=== PATIENT | male | born 1960 ===

== ENCOUNTER 2020-12-28 22:55 | Inpatient (IN) ==
[2020-12-28] MEDS ORDERED: Morphine 10 MG/ML VIAL (1 ml) IV ONE (23:22)
[2020-12-28] MEDS ORDERED: NS 0.9% 1000 ml BAG 1,000 ML IV ONE (23:22)
[2020-12-29 00:08] LABS: Body Fluid Source Synovial Fluid
[2020-12-29 00:17] LABS: Hematocrit 36 % (42-52); Hemoglobin 12.4 g/dL (14.0-18.0); Mean Corpuscular HGB Conc 35 g/dL (31-36); Mean Corpuscular Hemoglobin 29 pg (27-31); Mean Corpuscular Volume 84 fL (80-94); Mean Platelet Volume 7.4 fL (7.4-10.4); Platelet Count 436 10^3/uL (150-450); Red Blood Count 4.25 10^6 /uL (4.18-5.48); Red Cell Distribution Width 17 % (10-15); White Blood Count 15.7 10^3/uL (3.5-10.8)
[2020-12-29 00:19] LABS: ABS Basophils 0.1 10^3/ul (0-0.2); ABS Lymphocytes 1.7 10^3/ul (1.0-4.8); ABS Monocytes 2.3 10^3/ul (0-0.8); ABS Neutrophils 11.6 10^3/ul (1.5-7.7); Eosinophil % 0.3 %; Lymphocyte % 10.7 %; Nucleated Red Blood Cells % 0.1
[2020-12-29 00:28] LABS: Albumin/Globulin Ratio 0.9 (1-3); C Reactive Protein 240.19 mg/L (<8.01); Calcium 9.8 mg/dL (8.6-10.3); EGFR African American 58.9 (>60); EGFR Non-African American 48.6 (>60); Globulin 4.4 g/dL (2-4); Total Bilirubin 1.3 mg/dL (0.2-1.0); Total Protein 8.4 g/dL (6.4-8.9); Uric Acid 10.8 mg/dL (4.4-7.6)
[2020-12-29] MEDS ORDERED: methylPREDNISolone 125 mg 2 ML VIAL IV ONE (00:30)
[2020-12-29 00:32] LABS: Potassium 2.5 mmol/L (3.5-5.0)
[2020-12-29] MEDS ORDERED: Potassium EFFERVES 25 meq TAB PO ONE (00:39)
[2020-12-29 01:39] LABS: Giant Platelets Present
[2020-12-29] MEDS: KCL 20 MEQ/100 ML IVPREMIX 20 MEQ/100 ML BAG IV SCH ×4 (01:39→23:32)
[2020-12-29 01:44] LABS: Erythrocyte Sed Rate > 120 mm/Hr (0-19)
[2020-12-29 03:52] LABS: Body Fluid Appearance Cloudy; Body Fluid Color Yellow; Body Fluid Mono 17 %; Body Fluid Total Cells Counted 200
[2020-12-29] MEDS ORDERED: Nicotine Lozenge mini 4 MG LOZNG.MINI MT ONE (04:16)
[2020-12-29 04:21] LABS: Body Fluid WBC 2065 /mcL
[2020-12-29] MEDS ORDERED: Morphine 4 MG/ML VIAL (1 ml) IV ONE (04:21)
[2020-12-29] MEDS ORDERED: NS 0.9% 500 ml BAG 500 ML IV ONE ×2 (05:11→14:42)
[2020-12-29 05:15] LABS: Urine Appearance Clear; Urine Bilirubin Negative (Negative); Urine Blood Negative (Negative); Urine Color Yellow; Urine Glucose Negative (Negative); Urine Ketones Negative (Negative); Urine Nitrite Negative (Negative); Urine Protein 1+(30 mg/dL) (Negative); Urine Specific Gravity 1.015 (1.002-1.030); Urine Urobilinogen Negative (Negative)
[2020-12-29] MEDS ORDERED: Dextrose 50% Syringe 50 ml 25 GM/50 ML SYRINGE IV PUSH PRN (05:48)
[2020-12-29] MEDS ORDERED: Albuterol HFA INHALER 8 gm MDI INH PRN (06:17)
[2020-12-29 06:35] LABS: Urine Bacteria Absent (Absent); Urine Red Blood Cell Absent (Absent); Urine White Blood Cell Absent (Absent)
[2020-12-29 08:29] LABS: Magnesium 1.6 mg/dL (1.9-2.7)
[2020-12-29] MEDS: Cholecalciferol (VIT D3) 1,000 unit TAB PO SCH (08:50)
[2020-12-29] MEDS: Potassium Chlor 20 meq TAB.ER PO SCH (08:52)
[2020-12-29] MEDS: CMCS:Febuxostat 40 mg TAB (NF) PO SCH (08:53)
[2020-12-29] MEDS: Fluticasone NASAL SPRAY 50MCG 16 gm SPRAY BTL INTRANASAL SCH ×2 (08:56→23:32)
[2020-12-29] MEDS: Nicotine PATCH 21 MG/24 HR PATCH TRANSDERM SCH (08:58)
[2020-12-29] MEDS ORDERED: Tiotropium Brom/Olodaterol MDI INH SCH (09:00)
[2020-12-29] MEDS ORDERED: Enoxaparin 30 MG/0.3 ML SYR SUBCUT SCH (09:00)
[2020-12-29] MEDS ORDERED: Magnesium Sulfate IV 3 GM in NS 0.9% 100 ml BAG 100 ML IVPB ONE (10:00)
[2020-12-29] MEDS: Albuterol/Ipratropium NEB.SOL (2.5/0.5 MG) 3 ML NEB.SOLN INH ONE ×2 (15:20→16:05)
[2020-12-29] MEDS ORDERED: Perflutren Lipid Microsphere 3 ML VIAL ONE (15:27)
[2020-12-29 16:44] LABS: Calcium 9.6 mg/dL (8.6-10.3); EGFR African American 82.9 (>60); EGFR Non-African American 68.5 (>60)
[2020-12-29 16:46] LABS: Potassium 2.7 mmol/L (3.5-5.0)
[2020-12-29 16:50] LABS: Body Fluid Source Synovial Fluid
[2020-12-29 18:27] LABS: Body Fluid WBC 676 /mcL
[2020-12-29 18:28] LABS: Body Fluid Mono 3 %; Body Fluid Total Cells Counted 200
[2020-12-29 18:35] LABS: Body Fluid Appearance Bloody; Body Fluid Color Red
[2020-12-29 19:01] LABS: Magnesium 2.4 mg/dL (1.9-2.7)
[2020-12-29] MEDS: Mometasone/Formoter 200/5 MDI INH SCH (19:51)
[2020-12-30] MEDS ORDERED: KCL 20 MEQ/100 ML IVPREMIX 20 MEQ/100 ML BAG ONE (05:02)
[2020-12-30] MEDS: KCL 20 MEQ/100 ML IVPREMIX 20 MEQ/100 ML BAG IV SCH ×3 (05:05→13:43)
[2020-12-30 06:34] LABS: ABS Lymphocytes 1.6 10^3/ul (1.0-4.8); ABS Monocytes 1.5 10^3/ul (0-0.8); ABS Neutrophils 8.9 10^3/ul (1.5-7.7); Hematocrit 36 % (42-52); Lymphocyte % 13.1 %; Mean Corpuscular HGB Conc 34 g/dL (31-36); Mean Corpuscular Hemoglobin 29 pg (27-31); Mean Corpuscular Volume 86 fL (80-94); Mean Platelet Volume 7.6 fL (7.4-10.4); Platelet Count 407 10^3/uL (150-450); Red Blood Count 4.18 10^6 /uL (4.18-5.48); Red Cell Distribution Width 17 % (10-15)
[2020-12-30 07:09] LABS: Calcium 9.6 mg/dL (8.6-10.3); EGFR African American 89.4 (>60); EGFR Non-African American 73.9 (>60); Magnesium 2.3 mg/dL (1.9-2.7); Potassium 3.1 mmol/L (3.5-5.0)
[2020-12-30] MEDS ORDERED: Iodixanol (CONTRAST) 320 MG/ML 100 ML SDV IV SCH (07:25)
[2020-12-30] MEDS: Mometasone/Formoter 200/5 MDI INH SCH ×2 (08:06→20:44)
[2020-12-30] MEDS: SPIRIVA Respimat (tiotropium) 2.5 mcg/inh Inhaler INH SCH (08:07)
[2020-12-30 08:48] LABS: C Reactive Protein 176.29 mg/L (<8.01)
[2020-12-30] MEDS ORDERED: methylPREDNISolone 125 mg 2 ML VIAL IV SCH (09:00)
[2020-12-30] MEDS: Enoxaparin 40 MG/0.4 ML SYR SUBCUT SCH (09:41)
[2020-12-30] MEDS: Nicotine PATCH 21 MG/24 HR PATCH TRANSDERM SCH (09:41)
[2020-12-30] MEDS: CMCS:Febuxostat 40 mg TAB (NF) PO SCH (09:46)
[2020-12-30] MEDS: Cholecalciferol (VIT D3) 1,000 unit TAB PO SCH (09:46)
[2020-12-30] MEDS: Potassium Chlor 20 meq TAB.ER PO SCH (09:47)
[2020-12-30] MEDS: Fluticasone NASAL SPRAY 50MCG 16 gm SPRAY BTL INTRANASAL SCH ×2 (09:54→21:50)
[2020-12-30] MEDS ORDERED: Calcium Carb (TUMS) 500 mg CHEW TAB PO PRN (14:27)
[2020-12-31 06:02] LABS: ABS Lymphocytes 1.9 10^3/ul (1.0-4.8); ABS Monocytes 1.5 10^3/ul (0-0.8); ABS Neutrophils 6.3 10^3/ul (1.5-7.7); Hematocrit 35 % (42-52); Hemoglobin 11.7 g/dL (14.0-18.0); Lymphocyte % 19.5 %; Mean Corpuscular HGB Conc 33 g/dL (31-36); Mean Corpuscular Hemoglobin 29 pg (27-31); Mean Corpuscular Volume 86 fL (80-94); Mean Platelet Volume 7.1 fL (7.4-10.4); Platelet Count 383 10^3/uL (150-450); Red Blood Count 4.09 10^6 /uL (4.18-5.48); Red Cell Distribution Width 16 % (10-15); White Blood Count 9.7 10^3/uL (3.5-10.8)
[2020-12-31 06:18] LABS: Calcium 9.4 mg/dL (8.6-10.3); EGFR African American 104.5 (>60); EGFR Non-African American 86.4 (>60); Potassium 3.3 mmol/L (3.5-5.0)
[2020-12-31] MEDS ORDERED: KCL 20 MEQ/100 ML IVPREMIX 20 MEQ/100 ML BAG IV ONE (07:45)
[2020-12-31] MEDS: Mometasone/Formoter 200/5 MDI INH SCH ×2 (08:19→19:44)
[2020-12-31] MEDS: SPIRIVA Respimat (tiotropium) 2.5 mcg/inh Inhaler INH SCH (08:19)
[2020-12-31] MEDS: Enoxaparin 40 MG/0.4 ML SYR SUBCUT SCH (08:49)
[2020-12-31] MEDS: Cholecalciferol (VIT D3) 1,000 unit TAB PO SCH (08:50)
[2020-12-31] MEDS: Nicotine PATCH 21 MG/24 HR PATCH TRANSDERM SCH (08:51)
[2020-12-31] MEDS: CMCS:Febuxostat 40 mg TAB (NF) PO SCH (08:51)
[2020-12-31] MEDS: Potassium Chlor 20 meq TAB.ER PO SCH (08:51)
[2020-12-31 11:58] LABS: Anaplasma phagocytophilum Negative (Negative); B. miyamotoi PCR, B Negative (Negative); Babesia divergens/MO-1 Negative (Negative); Babesia ducani Negative (Negative); Ehrlichia chaffeensis Negative (Negative); Ehrlichia ewingii/canis Negative (Negative); Ehrlichia muris eauclairensis Negative (Negative)
[2020-12-31] MEDS: Fluticasone NASAL SPRAY 50MCG 16 gm SPRAY BTL INTRANASAL SCH ×2 (12:10→20:29)
[2020-12-31 15:59] LABS: B. garinii/B. afzellii PCR Negative (Negative); Lyme Disease Source SYNOVIAL FLUID
[2021-01-01 08:15] LABS: Calcium 9.6 mg/dL (8.6-10.3); EGFR African American 107.3 (>60); EGFR Non-African American 88.6 (>60); Potassium 3.3 mmol/L (3.5-5.0)
[2021-01-01] MEDS: Mometasone/Formoter 200/5 MDI INH SCH ×2 (08:19→20:42)
[2021-01-01] MEDS: SPIRIVA Respimat (tiotropium) 2.5 mcg/inh Inhaler INH SCH (08:19)
[2021-01-01] MEDS: Potassium Chlor 20 meq TAB.ER PO SCH (08:47)
[2021-01-01] MEDS: Cholecalciferol (VIT D3) 1,000 unit TAB PO SCH (08:47)
[2021-01-01] MEDS: CMCS:Febuxostat 40 mg TAB (NF) PO SCH (08:50)
[2021-01-01] MEDS: Nicotine PATCH 21 MG/24 HR PATCH TRANSDERM SCH (08:52)
[2021-01-01] MEDS: Enoxaparin 40 MG/0.4 ML SYR SUBCUT SCH (08:53)
[2021-01-01] MEDS: Fluticasone NASAL SPRAY 50MCG 16 gm SPRAY BTL INTRANASAL SCH ×2 (08:55→21:18)
[2021-01-01] MEDS ORDERED: Potassium Chlor 20 meq TAB.ER PO ONE (17:01)
[2021-01-02 01:33] LABS: B. garinii/B. afzellii PCR Negative (Negative); Lyme Disease Source SYNOVIAL FLUID
[2021-01-02 06:00] LABS: Calcium 9.3 mg/dL (8.6-10.3); EGFR African American 110.1 (>60); Potassium 3.7 mmol/L (3.5-5.0)
[2021-01-02] MEDS: Mometasone/Formoter 200/5 MDI INH SCH ×2 (08:20→20:37)
[2021-01-02] MEDS: SPIRIVA Respimat (tiotropium) 2.5 mcg/inh Inhaler INH SCH (08:21)
[2021-01-02] MEDS: Cholecalciferol (VIT D3) 1,000 unit TAB PO SCH (08:30)
[2021-01-02] MEDS: CMCS:Febuxostat 40 mg TAB (NF) PO SCH (08:30)
[2021-01-02] MEDS: Enoxaparin 40 MG/0.4 ML SYR SUBCUT SCH (08:30)
[2021-01-02] MEDS: Potassium Chlor 20 meq TAB.ER PO SCH (08:31)
[2021-01-02] MEDS: Nicotine PATCH 21 MG/24 HR PATCH TRANSDERM SCH (08:32)
[2021-01-02] MEDS: Fluticasone NASAL SPRAY 50MCG 16 gm SPRAY BTL INTRANASAL SCH ×2 (08:52→22:32)
[2021-01-03] MEDS: SPIRIVA Respimat (tiotropium) 2.5 mcg/inh Inhaler INH SCH (07:59)
[2021-01-03] MEDS: Mometasone/Formoter 200/5 MDI INH SCH (07:59)
[2021-01-03] MEDS: Nicotine PATCH 21 MG/24 HR PATCH TRANSDERM SCH (08:29)
[2021-01-03] MEDS: Enoxaparin 40 MG/0.4 ML SYR SUBCUT SCH (08:29)
[2021-01-03] MEDS: Cholecalciferol (VIT D3) 1,000 unit TAB PO SCH (08:31)
[2021-01-03] MEDS: CMCS:Febuxostat 40 mg TAB (NF) PO SCH (08:33)
[2021-01-03] MEDS: Fluticasone NASAL SPRAY 50MCG 16 gm SPRAY BTL INTRANASAL SCH (08:33)
[2021-01-03] MEDS: Potassium Chlor 20 meq TAB.ER PO SCH (08:33)
[2021-01-03 09:59] LABS: Calcium 9.6 mg/dL (8.6-10.3); EGFR African American 95.9 (>60); EGFR Non-African American 79.2 (>60); Magnesium 1.9 mg/dL (1.9-2.7); Potassium 3.9 mmol/L (3.5-5.0)
[2021-01-03 13:12] VITALS: BP 94/54
== END 2021-01-03 16:15 | disposition home or self-care (01) | DRG 351 ==
LOC: ED 22:55 → MED 12-29 04:58
PROVIDERS: ADMIT Internal Medicine; ATTEND Internal Medicine